=== PATIENT | male | born 1970 | race Caucasian/White ===

== ENCOUNTER 2017-09-18 13:00 | Emergency (ER) | payer OTHER ==
--- NOTE | 2017-09-18 13:14 | EDPHY ---
H & P Stated Complaint: Fell from ladder 8'; landed on butt; no neck/spine pain Time Seen by Provider: 09/18/17 13:14 HPI/ROS: CHIEF COMPLAINT: Right buttock and heel pain after mechanical fall HISTORY OF PRESENT ILLNESS: The patient presents the ED with complaints of right buttock and right heel pain after he fell off a roof earlier today. The patient fell approximately 8 ft. He sustained a superficial abrasion to the anterior aspect of his left foot. The patient did not strike his head or lose consciousness. He has no complaints of headache, neck pain, chest pain or difficulty breathing. REVIEW OF SYSTEMS: A comprehensive 10 point review of systems is otherwise negative aside from elements mentioned in the history of present illness. Source: Patient Exam Limitations: No limitations - Personal History Current Tetanus Diphtheria and Acellular Pertussis (TDAP): Yes - Medical/Surgical History Other PMH: healthy - Social History Smoking Status: Never smoked - Physical Exam Exam: General Appearance: Alert, no distress Head: Atraumatic Eyes: Pupils equal, round, reactive ENT, Mouth: No hemotympanum, no oral trauma Neck: Nontender, trachea midline Respiratory: No chest wall tender, no subcutaneous air, lungs clear bilaterally Cardiovascular: Regular rate and rhythm Abdomen: Abdomen is soft and nontender, pelvis stable Skin: Abrasion to the left anterior blevins Back: No midline T/L/S pain Extremities: Tenderness to palpation right calcaneus Neurological: A&Ox3, normal motor function, normal sensory exam Constitutional: Initial Vital Signs Temperature (C) 36.4 C 09/18/17 13:02 Heart Rate 61 09/18/17 13:02 Respiratory Rate 16 09/18/17 13:02 Blood Pressure 115/85 H 09/18/17 13:02 O2 Sat (%) 96 09/18/17 13:02 O2 Delivery Mode Room Air Allergies/Adverse Reactions: No Known Allergies Allergy (Verified 09/18/17 13:02) Home Medications: Medication Instructions Recorded NK [No Known Home Meds] 09/18/17 Medical Decision Making - Diagnostics Imaging Results: Imaging Impressions Calcaneus X-Ray 09/18/17 13:23 Impression: Equivocal hairline calcaneal fracture. 2. AP Pelvis History: Pain post fall from 8 foot ladder Findings: No pelvic ring fracture is identified. The SI joints, pubic symphysis and hip joints look normal. The right ischial tuberosity specifically looks normal. Impression: Negative. Pelvis X-Ray 09/18/17 13:23 Impression: Equivocal hairline calcaneal fracture. 2. AP Pelvis History: Pain post fall from 8 foot ladder Findings: No pelvic ring fracture is identified. The SI joints, pubic symphysis and hip joints look normal. The right ischial tuberosity specifically looks normal. Impression: Negative. ED Course/Re-evaluation: ED course: The patient presents the ED with complaints of buttock pain and right hip pain following a fall off a ladder. The patient has a superficial abrasion to his left blevins. The patient has no evidence of a closed head injury. I have cleared his cervical spine via nexus criteria. The patient was taken for plain films of his right heel and pelvis. There is no evidence of an acute fracture noted. The patient has no complaints of spinal pain and has no tenderness noted on exam. He is neurologically intact. The patient was re-evaluated at 2:00 p.m.. I informed him of the workup in the ED. Plan will be for Tylenol and ibuprofen as needed for pain. The patient should use antibiotic ointment to his abrasions. The patient will be discharged home with customary aftercare instructions and return precautions. Differential Diagnosis: Differential diagnosis considered includes pelvic fracture, calcaneal fracture, spinal fracture, retroperitoneal injury Departure - Departure Disposition: Home, Routine, Self-Care Clinical Impression: Foot contusion, Contusion, buttock, Abrasion Condition: Good Instructions: Musculoskeletal Pain (ED), Abrasion (ED) Additional Instructions: 1. Take Ibuprofen or Motrin 600 mg by mouth three times a day. 2. Tylenol as needed for pain 3. Antibiotic ointment twice daily for next week to your abrasions. 4. Your x-rays demonstrate no evidence of an obvious fracture. 5. Please follow up with the orthopedic surgeon you have been referred to for any persistent pain as this may be the sign of an injury not noted on the x-ray today. Referrals: Av Fernandez MD [Medical Doctor] - As per Instructions
[2017-09-18 14:14] VITALS: BP 120/80
== END 2017-09-18 14:12 | disposition home or self-care (01) ==
DX: S90.32XA Contusion of left foot, initial encounter (principal); S30.0XXA Contusion of lower back and pelvis, initial encounter; S30.810A Abrasion of lower back and pelvis, initial encounter; S80.812A Abrasion, left lower leg, initial encounter; W11.XXXA Fall on and from ladder, initial encounter